=== PATIENT | female | born 1985 | race African-American/Black ===

== ENCOUNTER 2024-12-30 16:44 | Emergency (ER) | payer MEDICAID ==
[~2024-12-30] VITALS: Ht 183.5 cm; Wt 102.3 kg
[~2024-12-30 16:44] MED LIST: GABA-1181 PO; QUET25TA PO; QUET300T2 PO
[2024-12-30 16:49] VITALS: BP 106/64; PULSE 112; RESP 16; TEMP 98.1; O2SAT 98
[2024-12-30] MEDS: ONDANSETRON HCL 4 MG/2 ML VIAL IVP ONE (17:43)
[2024-12-30] MEDS: SODIUM CHLORIDE 0.9% 1,000 ML IV ONE (17:44)
[2024-12-30 17:46] LABS: PLATELET COUNT (AUTO) 294 K/uL (150-450); RED BLOOD CELL COUNT(AUTO) 4.03 MIL/uL (4.00-5.20); RED CELL DISTRIBUTION WIDTH 13.8 % (11.5-14.5); WHITE BLOOD COUNT (AUTO) 7.5 K/uL (4.5-11.0)
[2024-12-30 17:53] LABS: CALCIUM, TOTAL 8.2 mg/dL (8.8-10.5); CREATININE 0.74 mg/dL (0.60-1.30); GLOMERULAR FILTR. RATE CALC > 60 mL/min (>60); GLUCOSE,RANDOM 91 mg/dL (70-110); SODIUM SERUM 137 mmol/L (136-145); UREA NITROGEN, BLOOD 12 mg/dL (7-18)
[2024-12-30 18:00] LABS: ASPARTATE AMINOTRANSFERASE 26.0 U/L (15-37); TOTAL PROTEIN, SERUM 7.5 g/dL (6.4-8.2)
[2024-12-30] MEDS ORDERED: HYDR-4072 PO (20:15)
[2024-12-30] MEDS ORDERED: PRED-554 PO (20:15)
== END 2024-12-30 20:32 | disposition home or self-care (01) ==
LOC: EMS 16:44
DX: M32.9 Systemic lupus erythematosus, unspecified (principal); R11.10 Vomiting, unspecified; F31.9 Bipolar disorder, unspecified; F25.9 Schizoaffective disorder, unspecified; F17.210 Nicotine dependence, cigarettes, uncomplicated; Z88.2 Allergy status to sulfonamides; Z79.899 Other long term (current) drug therapy; Z88.1 Allergy status to other antibiotic agents
CPT/HCPCS: 99283; 96374; 96361; 80048; 80076; 84703; 85025; 36415; J2405; J7512; J7030